=== PATIENT | male | born 1985 | race African-American/Black ===

== ENCOUNTER 2017-09-27 02:37 | Emergency (ER) | payer SELFPAY ==
[~2017-09-27] VITALS: Ht 167.6 cm; Wt 130.1 kg
[2017-09-27 03:19] LABS: BASOPHIL COUNT 0.1 K/uL (0-0.1); EOSINOPHIL (%) 1.2 % (0-5); EOSINOPHIL COUNT 0.1 K/uL (0-0.3); HEMATOCRIT 45.2 % (38.0-50.0); IMMATURE GRANULOCYTE (%) 0.3 % (0.0-0.7); INSTRUMENT ABS NEUTROPHIL CT 7.7 K/uL; MCH 21.5 PG (29.0-34.0); MCV 69.3 FL (86-99); MEAN PLAT.VOLUME 9.2 uM^3 (9.0-12.4); MONOCYTE (%) 6.3 % (3-12); MONOCYTE COUNT 0.7 K/uL (0-0.8); NEUTROPHIL (%) 65.9 % (45-76); NEUTROPHIL COUNT 7.7 K/uL (1.8-6.4); PLATELET COUNT 542 K/uL (156-360); RBC DIS.WIDTH-CV 17.2 % (11.8-14.6); RBC DIS.WIDTH-SD 38.3 % (39-53); RED BLOOD COUNT 6.52 M/uL (4.00-5.50); WHITE BLOOD COUNT 11.7 K/uL (4.1-10.2)
[2017-09-27 03:25] LABS: CHLORIDE 104 mEq/L (99-109); POTASSIUM 3.7 mEq/L (3.7-5.4); SODIUM 142 mEq/L (136-147)
[2017-09-27 03:27] LABS: GLUCOSE 101 mg/dL (70-99)
[2017-09-27 03:28] LABS: ANION GAP 14 MEQ/L (2-14)
[2017-09-27 03:29] LABS: TOTAL BILIRUBIN 0.4 mg/dL (0.0-1.0)
[2017-09-27 03:30] LABS: SERUM ETHYL ALCOHOL < 10 mg/dL
[2017-09-27 03:31] LABS: ALKALINE PHOSPHATASE 96 IU/L (3-129); GFR ESTIMATE (CALCULATED) > 59 mL/min/ (58.99-99999)
[2017-09-27 03:33] LABS: UREA NITROGEN (BUN) 11 mg/dL (9-23)
[2017-09-27 03:34] LABS: SALICYLATE < 5.0 MG/DL (15-30)
[2017-09-27 04:40] VITALS: BP 144/95
== END 2017-09-27 04:41 | disposition home or self-care (01) ==
LOC: EME 02:37
PROVIDERS: Emergency Medicine
DX: F32.9 Major depressive disorder, single episode, unspecified (principal); F43.25 Adjustment disorder with mixed disturbance of emotions and conduct; Z04.6 Encounter for general psychiatric examination, requested by authority
CPT/HCPCS: 80053; 85025; 90837; 99281; 99285; G0480